=== PATIENT | male | born 1990 ===

== ENCOUNTER 2017-10-15 23:28 | Emergency (ER) | payer SELFPAY ==
[2017-10-15 23:43] VITALS: BP 129/92
[2017-10-15] MEDS ORDERED: DUONEB *Not for PRN Use IH ONE (23:51)
== END 2017-10-16 01:48 ==
LOC: ED 23:28
DX: J45.909 Unspecified asthma, uncomplicated (principal); Z53.21 Procedure and treatment not carried out due to patient leaving prior to being seen by health care provider
CPT/HCPCS: 93005; 93010; 94640